=== PATIENT | female | born 2000 | race Caucasian/White ===

== ENCOUNTER 2020-03-19 14:58 | Emergency (ER) | payer OTHER ==
[2020-03-19] MEDS ORDERED: NORMAL SALINE 1000 ML 1,000 ML IV ONE (15:58)
--- NOTE | 2020-03-19 15:59 | ER Document Report ---
ED Medical Screen (RME) - General Chief Complaint: Flank Pain Stated Complaint: RIGHT FLANK PAIN,ABDOMINAL PAIN Time Seen by Provider: 03/19/20 15:27 - HPI Notes: 03/19/20 15:58 19-year-old female presents emergency room today for right flank pain that started last night. Reports she has had dysuria for the last 5 days and has been taking AZO without for relief. This morning she is reporting some nausea and. No prior history of nephrolithiasis. Denies any vaginal bleeding or vaginal discharge. Reports chills, denies any fevers. Denies any chest pain or shortness of breath. I have greeted and performed a rapid initial assessment of this patient. A comprehensive ED assessment and evaluation of the patient, analysis of test results and completion of the medical decision making process will be conducted by additional ED providers. PHYSICAL EXAMINATION: GENERAL: Well-appearing, well-nourished and in no acute distress. CV: s1, s2 regular LUNGS: No respiratory distress abd: R flank pain on palpation - Related Data Allergies/Adverse Reactions: No Known Allergies Allergy (Verified 03/19/20 15:47) Physical Exam - Vital signs Vitals: Temp Pulse Resp BP Pulse Ox 98.8 F 92 14 126/76 H 100 03/19/20 15:17 03/19/20 15:17 03/19/20 15:17 03/19/20 15:17 03/19/20 15:17 Course - Vital Signs Vital signs: Temp Pulse Resp BP Pulse Ox 98.8 F 92 14 126/76 H 100 03/19/20 15:17 03/19/20 15:17 03/19/20 15:17 03/19/20 15:17 03/19/20 15:17
[2020-03-19 16:33] LABS: APPEARANCE,URINE CLOUDY; BILIRUBIN,URINE NEGATIVE (NEGATIVE); COLOR,URINE YELLOW; GLUCOSE, URINE NEGATIVE (NEGATIVE); KETONES,URINE NEGATIVE (NEGATIVE); LEUKOCYTE ESTERASE,URINE LARGE (NEGATIVE); NITRITE,URINE NEGATIVE (NEGATIVE); PROTEIN,URINE 100 mg/dL (NEGATIVE); UROBILINOGEN,URINE NEGATIVE mg/dL (<2.0)
[2020-03-19 17:15] LABS: ABSOLUTE EOSINOPHILS # (AUTO) 0.1 10^3/uL (0.0-0.6); ABSOLUTE LYMPHOCYTES (AUTO) 2.1 10^3/uL (0.5-4.7); ABSOLUTE NEUT (AUTO) 11.7 10^3/uL (1.7-8.2); BASOPHILS % (AUTO) 0.3 % (0-2); EOSINOPHILS % (AUTO) 0.5 % (0-6); HEMATOCRIT 38.8 % (36.0-47.0); HEMOGLOBIN 13.3 g/dL (12.0-15.5); LYMPHOCYTES % (AUTO) 14.2 % (13-45); MEAN CORPUSCULAR HEMOGLOBIN 30.1 pg (27.0-33.4); MEAN CORPUSCULAR HGB CONC 34.4 g/dL (32.0-36.0); MEAN CORPUSCULAR VOLUME 88 fl (80-97); MONOCYTES % (AUTO) 6.8 % (3-13); PLATELET COUNT 226 10^3/uL (150-450); RED BLOOD COUNT 4.43 10^6/uL (3.72-5.28); RED CELL DISTRIBUTION WIDTH 12.6 % (11.5-14.0); SEGMENTED NEUTROPHILS % (AUTO) 78.2 % (42-78); TOTAL CELLS COUNTED % (AUTO) 100 %
--- NOTE | 2020-03-19 17:17 | RADIOLOGY REPORT (SQ) ---
EXAM DESCRIPTION: U/S RETROPERITON (RENAL/AORTA) IMAGES COMPLETED DATE/TIME: 03/19/2020 4:22 pm REASON FOR STUDY: right flank pain COMPARISON: None. TECHNIQUE: Dynamic and static grayscale images acquired of the kidneys and bladder and recorded on P ACS. Additional selected color Doppler and spectral images recorded. LIMITATIONS: None. FINDINGS: RIGHT KIDNEY: Normal size. Normal echogenicity. No solid or suspicious masses. No hydronep hrosis. No calcifications. LEFT KIDNEY: Normal size. Normal echogenicity. No solid or suspicious masses. No hydronephrosis. No calcifications. BLADDER: Decompressed. OTHER FINDINGS: No other significant finding. IMPRESSION: Normal sonographic appearance of the kidneys. The bladder is decompressed. TECHNICAL DOCUMENTATION: JOB ID: [id number] 2010 [employer]- All Rights Reserved Reading location - IP/workstation name: [email or web address]
[2020-03-19 17:35] LABS: ALBUMIN 4.6 g/dL (3.5-5.0); ALKALINE PHOSPHATASE 56 U/L (38-126); ANION GAP 11 (5-19); ASPARTATE AMINO TRANSFERASE 19 U/L (14-36); BILIRUBIN,TOTAL 0.7 mg/dL (0.2-1.3); BLOOD UREA NITROGEN 8 mg/dL (7-20); CARBON DIOXIDE 22 mmol/L (22-30); CHLORIDE 103 mmol/L (98-107); GLUCOSE 94 mg/dL (75-110); POTASSIUM 4.3 mmol/L (3.6-5.0); TOTAL PROTEIN 7.1 g/dL (6.3-8.2)
[2020-03-19 22:25] VITALS: BP 129/86
[2020-03-19] MEDS ORDERED: CEPHALEXIN 500 MG CAPSULE PO ONE (22:36)
[2020-03-19] MEDS ORDERED: IBUPROFEN 600 MG TABLET PO ONE (22:39)
--- NOTE | 2020-03-19 22:44 | ER Document Report ---
ED GI/ - General Chief Complaint: Flank Pain Stated Complaint: RIGHT FLANK PAIN,ABDOMINAL PAIN Time Seen by Provider: 03/19/20 15:27 - HPI Notes: 03/19/20 23:18 Patient is a healthy 19-year-old female who presents with dysuria and right flank pain. Patient states she has had dysuria for about 1 week. She has had UTIs before and has been treating it with Azo without relief. Yesterday night, she developed right-sided flank pain. She has not taken anything for the pain. She has not had any Azo today. Denies any fevers or chills. She states she has some burning in the suprapubic area. No vaginal discharge or vaginal bleeding. No concern for STDs. No nausea, vomiting. - Related Data Allergies/Adverse Reactions: No Known Allergies Allergy (Verified 03/19/20 15:47) Past Medical History - General Information source: Patient - Social History Smoking Status: Never Smoker Chew tobacco use (# tins/day): No Frequency of alcohol use: Occasional Drug Abuse: None Family History: Reviewed & Not Pertinent Patient has homicidal ideation: No Review of Systems - Review of Systems Notes: CONSTITUTIONAL: No fever, fatigue or weight loss. SKIN: No rash. HENT: No congestion, ear pain, or sore throat. EYES: No recent vision problems or eye pain. CARDIOVASCULAR: No chest pain or edema. RESPIRATORY: No cough, shortness of breath, congestion, or wheezing. GASTROINTESTINAL: No abdominal pain, nausea, vomiting, bloody stools or diarrhea. Positive for right flank pain. GENITOURINARY: Positive for dysuria. MUSCULOSKELETAL: No joint pain or swelling. NEUROLOGIC: No seizures. No headache, focal weakness or sensory changes. HEMATOLOGIC: No unusual bruising or bleeding. PSYCHIATRIC: No depression or anxiety. Physical Exam - Vital signs Vitals: Temp Pulse Resp BP Pulse Ox 98.8 F 92 14 126/76 H 100 03/19/20 15:17 03/19/20 15:17 03/19/20 15:17 03/19/20 15:17 03/19/20 15:17 - General General appearance: Appears well Notes: VITAL SIGNS: Within normal limits. GENERAL: No acute distress, non-toxic appearance. HEAD: Normal with no signs of head trauma. EYES: EOMI, conjunctiva normal, no discharge. EARS: Hearing grossly intact. NOSE: Normal. NECK: Normal range of motion, no tenderness, supple, no lymphadenopathy, No adenopathy, no JVD. CHEST: Clear breath sounds bilaterally. No wheezes, rales, or rhonchi. CARDIAC: Regular rate and rhythm. S1 and S2, without murmurs, gallops, or rubs. VASCULAR: No Edema. ABDOMEN: Normal and soft with no tenderness, no masses or pulsatile masses. Mild suprapubic discomfort to palpation. No right lower quadrant tenderness. No flank tenderness. LYMPATHTIC: No lymphadenopathy noted. MUSCULOSKELETAL: Good range of motion of all major joints. Extremities without clubbing, cyanosis or edema. NEUROLOGICAL: Alert and oriented x 3. No focal sensory or strength deficits. Speech normal. Follows commands appropriately. PSYCHIATRIC: Normal Affect, judgement and mood. SKIN: Normal appearance with no rashes or lesions. Course - Re-evaluation Re-evalutation: 03/19/20 23:25 Patient has evidence of a UTI. Her renal ultrasound was normal. Likely, patient has pyelonephritis with the right flank pain. I have low suspicion for appendicitis as she has no right lower quadrant tenderness. Patient declined IV or IM antibiotics. She states she would prefer to take oral. She was given Keflex and ibuprofen here. Patient will be discharged with Keflex. She was told to follow-up with her PCP. I gave her strict return precautions including worsening pain, fevers, vomiting, any other concerning symptoms and she verbalized understanding. - Vital Signs Vital signs: Temp Pulse Resp BP Pulse Ox 98.8 F 78 16 129/86 H 99 03/19/20 22:24 03/19/20 22:24 03/19/20 22:24 03/19/20 22:24 03/19/20 22:24 - Laboratory Result Diagrams: 03/19/20 16:33 03/19/20 16:33 Laboratory results interpreted by me: 03/19/20 03/19/20 03/19/20 15:55 16:33 16:33 WBC 15.0 H Absolute Neuts (auto) 11.7 H Seg Neutrophils % 78.2 H Sodium 136.2 L Urine Protein 100 H Urine Blood LARGE H Ur Leukocyte Esterase LARGE H - Diagnostic Test Radiology reviewed: Image reviewed, Reports reviewed Discharge - Discharge Clinical Impression: Pyelonephritis UTI (urinary tract infection) Qualifiers: Urinary tract infection type: site unspecified Hematuria presence: without hematuria Qualified Code(s): N39.0 - Urinary tract infection, site not specified Condition: Stable Disposition: HOME, SELF-CARE Instructions: Pyelonephritis ([facility]), Urinary Tract Infection ([facility]) Additional Instructions: You may take Tylenol and ibuprofen for pain. Take your antibiotics as prescribed. Please follow-up with your family doctor to ensure resolution. Please return to the ER for any abdominal pain, fevers, chills, nausea, vomiting, any worsening symptoms. Prescriptions: Cephalexin Monohydrate [Keflex 500 mg Capsule] 500 mg PO BID 10 Days #20 capsule
== END 2020-03-19 23:03 | disposition home or self-care (01) ==
LOC: ER 14:58
DX: N12 Tubulo-interstitial nephritis, not specified as acute or chronic (principal); R10.9 Unspecified abdominal pain; Z87.440 Personal history of urinary (tract) infections
CPT/HCPCS: 36415; 76770; 80053; 81001; 84702; 85025; 99284